=== PATIENT | female | born 1970 | race Caucasian/White ===

== ENCOUNTER 2019-10-17 20:31 | Emergency (ER) | payer SELFPAY ==
[~2019-10-17] VITALS: Ht 170.1 cm; Wt 127.0 kg
[2019-10-17 22:31] LABS: BASO % 0.1 % (0.0-1.0); HEMATOCRIT 39.1 % (37.0-47.0); HEMOGLOBIN 12.7 g/dl (12.0-16.0); LYMPH # 1.2 10*3/uL (1.3-4.4); LYMPH % 12.1 % (27.0-41.0); MEAN CELL VOLUME 84.4 fl (81.0-99.0); MEAN CORPUSCULAR HGB 27.4 pg (27.0-31.0); MEAN CORPUSCULAR HGB CONC 32.5 g/dl (33.0-37.0); MEAN PLATELET VOLUME 9.5 fl (9.6-12.3); MONO # 0.6 10*3/uL (0.1-1.0); MONO % 6.4 % (3.0-9.0); NEUT # 7.9 10*3/uL (2.3-7.9); NEUT % 81.1 % (47.0-73.0); PLATELET COUNT AUTOMATED 285 10*3/uL (130-400); RED BLOOD COUNT 4.63 10*6/uL (4.10-5.10); WHITE BLOOD COUNT 9.8 10*3/uL (4.8-10.8)
[2019-10-17 22:42] LABS: ACT PARTIAL THROMBO TIME 29.9 SECONDS (20.0-32.1)
[2019-10-17 22:46] LABS: ALBUMIN 3.6 gm/dl (3.1-4.5); ALKALINE PHOSPHATASE 59 U/L (45-117); BUN 8 mg/dl (7-24); CHLORIDE 101 mmol/L (98-107); CREATININE 0.86 mg/dL (0.55-1.02); POTASSIUM 3.4 mmol/L (3.5-5.1); SGOT/AST 25 IU/L (3-35); SGPT/ALT 37 U/L (12-78); SODIUM 135 mmol/L (136-145); TOTAL PROTEIN 7.9 gm/dL (6.4-8.2)
[2019-10-17] MEDS ORDERED: TAMIFLU 75MG CA75 MG PO (23:23)
== END 2019-10-18 00:03 | disposition home or self-care (01) ==
LOC: ED 20:31
PROVIDERS: Internal Medicine
DX: J10.1 Influenza due to other identified influenza virus with other respiratory manifestations (principal); Z88.0 Allergy status to penicillin

== ENCOUNTER 2019-10-24 13:16 | Emergency (ER) | payer SELFPAY ==
[~2019-10-24] VITALS: Ht 170.1 cm; Wt 127.0 kg
[~2019-10-24 13:16] MED LIST: TAMIFLU 75MG CA75 MG PO
== END 2019-10-24 16:00 | disposition home or self-care (01) ==
LOC: ED 13:16
DX: M25.561 Pain in right knee (principal); E66.01 Morbid (severe) obesity due to excess calories; Z88.0 Allergy status to penicillin